=== PATIENT | female | born 1960 | race Caucasian/White ===

== ENCOUNTER 2017-11-07 10:01 | Outpatient (CLI) | payer OTHER | END 2017-11-07 10:06 | disposition home or self-care (01) | LOC: SONOGRAMA 10:01 | DX: E04.1 Nontoxic single thyroid nodule (principal) ==

== ENCOUNTER 2020-08-25 08:38 | Outpatient (CLI) | payer OTHER | END 2020-08-25 08:43 | disposition home or self-care (01) | LOC: SONOGRAMA 08:38 | PROVIDERS: ATTEND Pathology Anatomic Pathology & Clinical Pathology | DX: E04.1 Nontoxic single thyroid nodule (principal) ==